=== PATIENT | male | born 1975 | race African-American/Black ===

== ENCOUNTER 2025-04-24 11:13 | Outpatient (AMB) | payer OTHER, SELFPAY ==
--- NOTE | 2025-04-24 11:15 | A.OFFPC_ITS ---
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 Accompanied by: Self / Same As Patient Allergies No Known Allergies Allergy (Verified 04/24/25 11:15) Medication List - Last Reconciled 04/24/25 by Oral Abbasi MD No Known Home Meds Tobacco use date assessed: 04/24/25 Dental Screening Dental Screen Date: 04/24/25 Did you have a dental visit in the last 12 months?: Yes Did you have a dental problem in the last 6 months where you did not have access to dental care?: Yes Was dental information given to patient?: Patient has dentist HPI HPI Comments History of Present Illness Details History of Present Illness The patient is a 49-year-old male presenting to establish care, follow up on prediabetes, and discuss prostate screening. Prediabetes: The patient reports he had lab work done in January which indicated he is borderline for diabetes. Since receiving these results, he has been attempting to modify his diet. Prostate cancer screening: The patient is 49 years old and was advised by his previous physician to have his prostate checked. He is of descent, which is a risk factor for prostate cancer, but denies any family history of the disease. He denies urinary symptoms such as increased frequency, nocturia, or incomplete emptying. Colon cancer screening: The patient is 49 years old and reports he has never had a colonoscopy. Surgical History: - No prior surgeries reported. 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 - Substance use: Drinks coffee, which he believes may cause his heart to race. - Sleep: Reports sleeping well. Family History: - Denies a family history of prostate ca ncer. Diagnostic Results: - Lab work (January): Indicated borderlin e diabetes. Past Medical History - Prediabetes diagnosed based on lab wor k from January. Health Maintenance - Prostate cancer screening: The patient is an male, which is a risk factor. - After discussing options, a PSA blood test was ordered. - Colon cancer screening: The patient is 49 and has never been screened. - After discussing options, a Cologuard test was ordered. ON LICENSE OF [facility] Medical History (Updated 04/24/25 @ 12:08 by Oral Abbasi MD) Irregular heart beat Family History (Updated 04/24/25 @ 11:23 by Get Tobin MA) Father No problems noted. Mother No problems noted. Social History Housing: Apartment Patient Tobacco Use Status: Never used Tobacco service: No Current occupational status: employed Cognitive needs: No Hearing needs: No Vision needs: No Questionnaire PHQ-9 Over the last 2 weeks, how often have you been bothered by any of the following problems? 1. Little interest or pleasure in doing things: not at all 2. Feeling down, depressed, or hopeless: not at all 3. Trouble falling or staying asleep, or sleeping too much: not at all 4. Feeling tired or having little energy: not at all 5. Poor appetite or overeating: not at all 6. Feeling bad about yourself - or that you are a failure or have let yourself or your family down: not at all 7. Trouble concentrating on things, such as reading the newspaper or watching television: not at all 8. Moving or speaking so slowly that other people could have noticed. Or the opposite - being so fidgety or restless that you have been moving around a lot more than usual: not at all 9. Thoughts that you would be better off or of hurting yourself in some way: not at all Total score: 0 Depression Screening Interpretation: Negative Depression Screening Done: Yes Source: Developed by Drs. Felix Marcos, Laila Holcomb, Shiva Echeverria and colleagues, with an educational sugey from [employer]. Thrive Questionnaire Date Thrive assessed: 04/24/25 I am a: Patient What is your living situation today?: I have a steady place to live Within the past 12 months, did the food you bought not last and you didn't have the money to get more?: Never true Within the past 12 months, did you worry whether your food would run out before you got money to buy more?: Never true Do you have trouble paying for medicines?: No Do you have trouble getting transportation to medical appointments?: No Do you have trouble paying your heating and electricity bill?: No Do you have trouble taking care of your child, family member or friend?: No Do you have trouble with day-to-day activities such as bathing, preparing meals, shopping, managing finances, etc.?: No Are you currently unemployed and looking for a job?: No Are you interested in more education?: No Please select the resources that you would like help with: None THRIVE Score: 0 AUDIT C Alcohol Use Questionnaire (AUDIT-C) 1. How often do you have a drink containing alcohol?: Never Total Score: 0 ANDREW-7 AMB Questionnaire ANDREW-7 Date ANDREW - 7 assessed: 04/24/25 Feeling nervous, anxious, or on edge: 0 = Not at all Not being able to stop or control worryin = Not at all Worrying too much about different things: 0 = Not at all Trouble relaxin = Not at all Being so restless that it is hard to sit still: 0 = Not at all Becoming easily annoyed or irritable: 0 = Not at all Feeling afraid as if something awful might happen: 0 = Not at all Total ANDREW-7 score (0-4 normal; 5-9 mild; 10-14 moderate; 15-21 severe): 0 Source: Developed by Drs. Felix Marcos, Laila Holcomb, Shiva Echeverria and colleagues, with an educational sugey from [employer]. Review of Systems Narrative Review of Systems - General: Reports good sleep. - Cardiovascular: Reports a sensation of a racing heart, which he associates with coffee consumption. - Gastrointestinal: Reports good bowel function. - Genitourinary: Reports good urinary function. Denies nocturia, frequency, or incomplete bladder emptying. 10-point ROS reviewed and negative except as noted in HPI Physical exam (Primary Care) Vital Signs: Last Vital Signs Temp 98.1 F 04/24/25 11:19 Pulse 83 04/24/25 11:19 Resp 16 04/24/25 11:19 BP 153/103 H 04/24/25 11:19 Pulse Ox 95 04/24/25 11:19 Oxygen Delivery Method Room Air 04/24/25 11:19 BMI result Body Mass Index 34.4 Tobacco/Smoking Status: Tobacco use Status Tobacco use date assessed 04/24/25 04/24/25 11:27 Patient Tobacco Use Status Never used Tobacco 04/24/25 11:27 PHQ-9: PHQ-9 Score PHQ-9: Total score 0 04/24/25 11:28 Depression Screening Interpretation: Negative Thrive Assessment: Date of Thrive Assessment Date Thrive assessed 04/24/25 04/24/25 11:27 Narrative Physical Exam General: Well-appearing, in no acute distress. Vital signs: Blood pressure is a little elevated. HEENT: Normocephalic, atraumatic. PERRLA, EOMI. Conjunctiva clear, sclera anicteric. Oropharynx clear, mucous membranes moist. TMs intact bilaterally. Neck: Supple, no lymphadenopathy, no thyromegaly, no JVD or carotid bruits. Cardiovascular: Irregular heart rate, normal S1/S2, no murmurs, rubs, or gallops. Peripheral pulses 2+ and symmetric. No edema. Respiratory: Lungs clear to auscultation bilaterally, no wheezes, rales, or rhonchi. Normal effort. Abdomen: Soft, non-tender, non-distended. Normoactive bowel sounds. No hepatosplenomegaly, no masses. MSK: Full range of motion, no joint swelling or deformity. Normal gait. Skin: Warm, dry, intact. No rashes, lesions, or pallor. Neuro: Alert and oriented x3. Cranial nerves II-XII intact. Strength 5/5 throughout. Sensation intact. Reflexes 2+ symmetric. Normal coordination and gait. Psych: Appropriate mood and affect. Normal judgment and insight. Coding Level of Care Code New Pt Level 4 (15509) Diagnoses Irregular heart beat I49.9 Prediabetes R73.03 Assessment & Plan Assessment & Plan (1) Irregular heart beat: Code(s): I49.9 - Cardiac arrhythmia, unspecified Category: Medical (2) Prediabetes: Code(s): R73.03 - Prediabetes Plan Consent The risks, benefits, and alternatives for prostate cancer screening were discussed with the patient. This included the limitations of a digital rectal exam and the potential for false positives with a PSA test, which could lead to a cascade of further testing and invasive procedures with potential consequences. The patient acknowledged the information and consented to proceed with a PSA blood test. Additionally, the options for colon cancer screening were reviewed, including an at-home stool test (Cologuard) valid for three years versus a colonoscopy, which involves a bowel preparation and procedural sedation and is valid for ten years if normal. The patient provided verbal consent to proceed with the Cologuard test. Patient was informed and verbally consented to the use of an ambient scribe for clinic note documentation during this visit. Plan 1. Prediabetes - Comprehensive lab work will be obtained today to re-evaluate the patient's glycemic status, as his last labs were from January. - Labs ordered include a complete blood count, comprehensive metabolic panel, hemoglobin A1c, and a lipid panel. - A follow-up visit is scheduled in two weeks to discuss all lab results and determine next steps to optimize his health. 2. Irregular Heartbeat - An electrocardiogram (EKG) will be performed today to further evaluate the irregular heart rate detected on physical exam. - The patient notes this could be related to coffee consumption, but an EKG is prudent to ensure cardiac function is normal. 3. Health Maintenance: Prostate Cancer Screening - After a discussion of risks and benefits, a Prostate-Specific Antigen (PSA) test will be included in today's blood work for screening. 4. Health Maintenance: Colon Cancer Screening - After discussing the alternatives of Cologuard versus colonoscopy, the patient opted for the Cologuard test. - A Cologuard kit will be mailed to the patient's home for him to complete and send back for analysis. Discussion Notes I had a detailed discussion with the patient regarding his health maintenance. His initial blood pressure reading was elevated, and I advised we will recheck it before he leaves. My physical exam revealed an irregular heart rate, and although he attributes this to coffee, I explained the importance of getting an EKG to ensure his heart is working correctly, which he understood. I reviewed the options for prostate cancer screening, outlining the risks of false positives with PSA testing and the benefits of early detection given his risk factors as an male. He elected to proceed with a PSA test. We also discussed colon cancer screening, comparing the Cologuard test with a traditional colonoscopy, and he chose to proceed with Cologuard. I ordered a comprehensive panel of blood work to get a baseline and follow up on his prediabetes. We will follow up in two weeks to discuss all results and optimize his health. Patient Instructions - Please proceed to the lab today to have your blood drawn for the ordered tests. - You will also have an EKG (electrocardiogram) done today to check your heart's rhythm. - A Cologuard kit for colon cancer screening will be mailed to your home. Please follow the instructions in the kit to collect a sample and mail it back. - We will have your blood pressure re-checked before you leave the office today. - Please schedule a follow-up appointment in about two weeks to go over all of your results. Medical Decision Making The patient is a 49-year-old male establishing care. A gan finding on exam was an irregular heart rate. Although this may be benign and related to his stated coffee intake, an EKG is warranted to rule out an underlying arrhythmia. The patient reported a prior finding of prediabetes, so comprehensive labs, including a hemoglobin A1c, were ordered to re-evaluate his glycemic status and establish a baseline for other health markers. For health maintenance, we discussed age- and risk-appropriate cancer screenings. As an man approaching 50, prostate cancer screening was discussed via shared decision- making, covering the risks of a PSA test (false positives, downstream procedures) and benefits; he opted to proceed with screening. For colorectal cancer screening, options of Cologuard versus colonoscopy were presented, and the patient chose the non-invasive Cologuard test. A follow-up is planned in two weeks to review all diagnostic findings and formulate a long-term health plan. Total time spent caring for the patient today was 30 minutes. This includes time spent before the visit reviewing the chart, time spent documenting, and time spent reviewing laboratory results, diagnostic imaging, medications, performing a medically necessary evaluation, counseling on diagnoses, care coordination, ordering appropriate tests, ordering appropriate medications, review of tests performed by other providers, reporting test results with the patient, communication with other healthcare providers. Orders: Orders Complete Blood Count Auto Diff Today Z13.9 - Encounter for screening, unspecified Comprehensive Met. Panel Today Z13.9 - Encounter for screening, unspecified Hepatitis B Surface Antibody Today Z13.9 - Encounter for screening, unspecified Hepatitis B Surface Antigen Today Z13.9 - Encounter for screening, unspecified Hepatitis C Antibody Today Z13.9 - Encounter for screening, unspecified Vitamin D 1,25 dihydroxy Today Z13.9 - Encounter for screening, unspecified TSH reflex Free T4 Today Z13.9 - Encounter for screening, unspecified UA CC w/rflx Micro + Cult Today Z13.9 - Encounter for screening, unspecified ECG 12 lead EKG Today I49.9 - Cardiac arrhythmia, unspecified Hemoglobin A1c Today Z13.9 - Encounter for screening, unspecified HIV Ab/Ag Today Z13.9 - Encounter for screening, unspecified Lipid Panel Today Z13.9 - Encounter for screening, unspecified Magnesium Today Z13.9 - Encounter for screening, unspecified Vitamin B12 and Folate Today Z13.9 - Encounter for screening, unspecified PSA, Ultra Sensitive Today Z13.9 - Encounter for screening, unspecified Referrals Cologuard Test Z12.11 - Encounter for screening for malignant neoplasm of colon, Z12.12 - Encounter for screening for malignant neoplasm of rectum
[2025-04-24 11:19] VITALS: BP 153/103; PULSE 83; RESP 16; TEMP 36.7; O2SAT 95; BMI 34.4
[2025-04-24 11:59] VITALS: BP 127/82
== END 2025-04-24 12:03 | disposition home or self-care (01) ==
LOC: HO.HMCFMS 11:13
PROVIDERS: Visit Provider Student in an Organized Health Care Education/Training Program
DX: I49.9 Cardiac arrhythmia, unspecified (principal); R73.03 Prediabetes

== ENCOUNTER 2025-04-24 11:13 | Outpatient (REF) | payer OTHER, SELFPAY ==
[2025-04-24 18:08] LABS: Appearance Urine Clear; Glucose Urine UA Negative (Negative); PH 6.0 (5.0-9.0); Specific Gravity - Urine 1.020 (1.005-1.025)
[2025-04-24 18:09] LABS: MANUAL DIFF FLAG NO
[2025-04-24 18:42] LABS: Hematocrit 48.2 % (42.0-52.0); Hemoglobin 15.4 g/dl (14.0-18.0); Imm Gran Abs Auto 0.01 X10*3/uL (0.00-0.03); Imm Gran Pct Auto 0.2 % (0.0-0.4); Lymphocytes Absolute Auto 1.9 X10*3/uL (1.2-4.9); Mean Corpuscular HGB Conc 32.0 g/dl (31.0-36.0); Mean Corpuscular Hemoglobin 28.9 pg (27.0-33.0); Mean Corpuscular Volume 90.4 fL (80.0-98.0); NRBC Abs Auto 0.000 X10*3/uL (0.0-0.012); NRBC Pct Auto 0.0 /100WBC (0.0-0.2); Platelet Count 236 X10*3/uL (160-400); Red Blood Count 5.33 X10*6/uL (4.60-5.80); White Blood Count 4.1 X10*3/uL (4.8-10.8)
[2025-04-24 18:52] LABS: Albumin Level 4.5 g/dL (3.5-5.0); Alkaline Phosphatase 62 U/L (39-117); Anion Gap 11 (12-20); Aspartate Amino Transferase 56 U/L (5-37); Blood Urea Nitrogen 14 mg/dL (9-16); Calcium 9.1 mg/dL (8.4-10.2); Carbon Dioxide 28 mmol/L (22-29); Chloride 103 mmol/L (96-108); Cholesterol 244 mg/dL (<200); Estimated Glomerular Filt Rate > 60; HDL Cholesterol 51 mg/dL (>40); Magnesium 2.1 mg/dL (1.6-2.6); Potassium 4.0 mmol/L (3.3-5.1); Sodium 138 mmol/L (135-145); Total Protein 7.9 g/dL (6.5-8.0); Triglycerides 199 mg/dL (<150)
[2025-04-24 19:01] LABS: Alanine Aminotransferase 48 U/L (0-40)
[2025-04-24 19:08] LABS: Folate 6.4 ng/mL (> or = 4.0); Vitamin B12 677 pg/mL (200-900)
[2025-04-25 06:41] LABS: HBS Num1 0.22 mIU/mL (0-7.99); HBsAGNum1 0.45 S/CO (0.00-0.99); HIV Num 1 0.07 S/CO (0.00-0.99); Hepatitis B Surface Antigen Negative (Negative); ~HepC Num1 0.08 S/CO (0.00-0.79); ~Hepatitis B Surface Antibody NONREACTIVE (Nonreactive); ~Hepatitis C Antibody Nonreactive (Nonreactive)
[2025-04-29 13:07] LABS: VITAMIN D (1,25 OH) D3 54 pg/mL; Vit D (1,25-Dihydroxy) Total 54 pg/mL (18-72); Vitamin D (1,25 OH) D2 <8 pg/mL
[2025-05-03 01:33] LABS: PSA, Ultra Sensitive 0.44 ng/mL
== END 2025-04-24 11:14 | disposition home or self-care (01) ==
LOC: HO.HKASLDS 11:13
PROVIDERS: PCP Student in an Organized Health Care Education/Training Program; Visit Provider Student in an Organized Health Care Education/Training Program
DX: R73.03 Prediabetes (principal); I49.9 Cardiac arrhythmia, unspecified; E78.5 Hyperlipidemia, unspecified; R74.8 Abnormal levels of other serum enzymes; Z12.5 Encounter for screening for malignant neoplasm of prostate
CPT/HCPCS: 36415; 80053; 80061; 81003; 82607; 82652; 82746; 83036; 83735; 84153; 84443; 85025; 86706; 86803; 87340; 87389; 96127

== ENCOUNTER 2025-05-09 14:51 | Outpatient (AMB) | payer OTHER, SELFPAY ==
--- NOTE | 2025-05-09 15:45 | A.OFFPC_ITS ---
Vital Signs 05/09/25 15:49 Height 6 ft 0.05 in Weight 254 lb 6 oz BMI 34.4 BP 161/83 H Blood Pressure Location Rt brachial Position Sitting Respiration 16 Pulse 67 Pulse Source Monitor Temp 97.9 F Temp Source Oral Pulse Oximetry (%) 98 Oxygen Delivery Method Room Air Intake Visit Reasons: 2 wk f/u- lab reviews Intake Note: lab reviews Forestry Technician Required: No Allergies No Known Allergies Allergy (Verified 05/09/25 15:48) Tobacco use date assessed: 04/24/25 Dental Screening Dental Screen Date: 04/24/25 HPI HPI Comments History of Present Illness Details History of Present Illness The patient is a 50 year old male presenting for review of laboratory results. Prediabetes: Recent lab results show a hemoglobin A1c of 5.8%, placing the patient in the prediabetic range. The patient reports efforts to modify his diet by eliminating sweets, pastas, and potatoes, and focusing on greens and proteins, though he admits to eating nikita cookies occasionally. Hyperlipidemia: Lab results show elevated triglycerides at 199 mg/dL, total cholesterol at 244 mg/dL, and LDL cholesterol at 154 mg/dL. There is an associated mild elevation in liver enzymes. The patient reports eating eggs every morning. Irregular heartbeat: The patient has a history of an irregular heartbeat which was previously identified. An electrocardiogram was ordered to evaluate this, but the patient has not yet completed the test. Social History: - Diet: The patient reports attempting t o eliminate sweets, breads, pasta, and potatoes. - He consumes nikita cookies occasionall y. - He reports eating greens, proteins, an d eggs every morning. Diagnostic Results: - Labs: Complete blood count, sodium, po tassium, renal function, random glucose, calcium, magnesium, vitamin D, folate, thyroid function, and prostate specific antigen were all within normal limits. - Hemoglobin A1c: 5.8%. - Liver enzymes: Mildly elevated. - Lipid panel: Triglycerides 199 mg/dL, total cholesterol 244 mg/dL, LDL cholesterol 154 mg/dL. - Urinalysis: Results are normal. - Serology: Negative for Hepatitis B, He patitis C, and HIV. Past Medical History - History of irregular heartbeat. Health Maintenance - Colon Cancer Screening: The patient berrios s received a Cologuard kit and plans to complete it. - Infectious Disease Screening: Hepatiti s B, C, and HIV tests were negative. - Prostate Cancer Screening: Prostate en zyme level is normal. - Dietary Counseling: A referral to a re gistered dietitian has been ordered for management of hyperlipidemia and prediabetes. [facility] Medical History (Updated 05/09/25 @ 17:01 by Oral Abbasi MD) Prediabetes Hyperlipidemia Elevated liver enzymes Irregular heart beat Family History Father No problems noted. Mother No problems noted. Social History (Updated 05/09/25 @ 15:49 by Jackson Espana CMA) Housing: Apartment Alcohol intake: never Patient Tobacco Use Status: Never used Tobacco service: No Current occupational status: employed Cognitive needs: No Hearing needs: No Vision needs: No Questionnaire PHQ-9 Over the last 2 weeks, how often have you been bothered by any of the following problems? 1. Little interest or pleasure in doing things: nearly every day 2. Feeling down, depressed, or hopeless: not at all 3. Trouble falling or staying asleep, or sleeping too much: not at all 4. Feeling tired or having little energy: not at all 5. Poor appetite or overeating: not at all 6. Feeling bad about yourself - or that you are a failure or have let yourself or your family down: not at all 7. Trouble concentrating on things, such as reading the newspaper or watching television: not at all 8. Moving or speaking so slowly that other people could have noticed. Or the opposite - being so fidgety or restless that you have been moving around a lot more than usual: not at all 9. Thoughts that you would be better off or of hurting yourself in some way: not at all Total score: 3 Source: Developed by Drs. Felix Marcos, Laila Holcomb, Shiva Echeverria and colleagues, with an educational sugey from [employer]. Thrive Questionnaire Date Thrive assessed: 05/02/25 I am a: Patient What is your living situation today?: I have a steady place to live Within the past 12 months, did the food you bought not last and you didn't have the money to get more?: Never true Within the past 12 months, did you worry whether your food would run out before you got money to buy more?: Never true Do you have trouble paying for medicines?: No Do you have trouble getting transportation to medical appointments?: No Do you have trouble paying your heating and electricity bill?: No Do you have trouble taking care of your child, family member or friend?: No Do you have trouble with day-to-day activities such as bathing, preparing meals, shopping, managing finances, etc.?: No Are you currently unemployed and looking for a job?: No Are you interested in more education?: No Please select the resources that you would like help with: None Currently or been in a relationship where the following occur: No concerns reported THRIVE Score: 0 AUDIT C Alcohol Use Questionnaire (AUDIT-C) 1. How often do you have a drink containing alcohol?: Never 2. How many drinks containing alcohol do you have on a typical day when you are drinking?: 1 or 2 3. How often do you have six or more drinks on one occasion?: Never Total Score: 0 ANDREW-7 AMB Questionnaire ANDREW-7 Date ANDREW - 7 assessed: 04/24/25 Feeling nervous, anxious, or on edge: 0 = Not at all Not being able to stop or control worryin = Not at all Worrying too much about different things: 0 = Not at all Trouble relaxin = Not at all Being so restless that it is hard to sit still: 0 = Not at all Becoming easily annoyed or irritable: 0 = Not at all Feeling afraid as if something awful might happen: 0 = Not at all Total ANDREW-7 score (0-4 normal; 5-9 mild; 10-14 moderate; 15-21 severe): 0 Source: Developed by Drs. Felix Marcos, Laila Holcomb, Shiva Echeverria and colleagues, with an educational sugey from [employer]. Review of Systems Narrative Review of Systems - Cardiovascular: Reports a history of irregular heartbeat. - Constitutional: No new complaints reported; patient is in for a review of labs. 10-point ROS reviewed and negative except as noted in HPI Physical exam (Primary Care) Vital Signs: Last Vital Signs Temp 97.9 F 05/09/25 15:49 Pulse 67 05/09/25 15:49 Resp 16 11/18/25 15:49 BP 161/83 H 05/09/25 15:49 Pulse Ox 98 05/09/25 15:49 Oxygen Delivery Method Room Air 05/09/25 15:49 BMI result Body Mass Index 34.4 Tobacco/Smoking Status: Tobacco use Status Tobacco use date assessed 04/24/25 05/09/25 15:51 Patient Tobacco Use Status Never used Tobacco 05/09/25 15:51 PHQ-9: PHQ-9 Score PHQ-9: Total score 3 05/09/25 15:51 Thrive Assessment: Date of Thrive Assessment Date Thrive assessed 05/02/25 05/09/25 15:51 Currently or been in a relationship where the following occur: No concerns reported Narrative Physical Exam General: Well-appearing, in no acute distress. Vital signs: Blood pressure 161/83, otherwise within normal limits. HEENT: Normocephalic, atraumatic. PERRLA, EOMI. Conjunctiva clear, sclera anicteric. Oropharynx clear, mucous membranes moist. TMs intact bilaterally. Neck: Supple, no lymphadenopathy, no thyromegaly, no JVD or carotid bruits. Cardiovascular: Irregular heartbeat noted. Normal S1/S2, no murmurs, rubs, or ga llops. Peripheral pulses 2+ and symmetric. No edema. Respiratory: Lungs clear to auscultation bilaterally, no wheezes, rales, or rhonchi. Normal effort. Abdomen: Soft, non-tender, non-distended. Normoactive bowel sounds. No hepatosplenomegaly, no masses. MSK: Full range of motion, no joint swelling or deformity. Normal gait. Skin: Warm, dry, intact. No rashes, lesions, or pallor. Neuro: Alert and oriented x3. Cranial nerves II-XII intact. Strength 5/5 throughout. Sensation intact. Reflexes 2+ symmetric. Normal coordination and gait. Psych: Appropriate mood and affect. Normal judgment and insight. Coding Level of Care Code Est Pt Level 3 (81681) Diagnoses Prediabetes R73.03 Irregular heart beat I49.9 Hyperlipidemia E78.5 Elevated liver enzymes R74.8 Elevated blood pressure reading R03.0 Assessment & Plan Assessment & Plan (1) Prediabetes: Code(s): R73.03 - Prediabetes Category: Medical (2) Irregular heart beat: Code(s): I49.9 - Cardiac arrhythmia, unspecified Category: Medical (3) Hyperlipidemia: Code(s): E78.5 - Hyperlipidemia, unspecified Category: Medical (4) Elevated liver enzymes: Code(s): R74.8 - Abnormal levels of other serum enzymes Category: Medical (5) Elevated blood pressure reading: Code(s): R03.0 - Elevated blood-pressure reading, without diagnosis of hypertension Plan Consent The patient was informed of the plan to order a liver ultrasound, an electrocardiogram, and a referral to a registered dietitian. The patient verbally agreed to the proposed plan of care. Patient was informed and verbally consented to the use of an ambient scribe for clinic note documentation during this visit. Plan 1. Hyperlipidemia And Elevated Liver Enzymes - The patient's elevated liver enzymes are likely secondary to dyslipidemia, with concern for fat deposition in the liver. - An ultrasound of the liver has been ordered to assess for steatosis and to establish a baseline. - A referral will be placed for a registered dietitian to provide education on dietary modifications for elevated lipids. 2. Prediabetes - The patient's hemoglobin A1c of 5.8% falls within the prediabetic range. - The patient is encouraged to continue dietary modifications. The referral to a dialysis registered nurse will also address management of prediabetes. 3. Irregular Heartbeat - An electrocardiogram (EKG) will be scheduled to evaluate the patient's prior complaint of an irregular heartbeat. - The patient will be provided with the contact number to schedule the appointment. 4. Elevated Blood Pressure Reading - A single blood pressure reading was elevated at 161/83 mmHg. - The patient's blood pressure will be rechecked before leaving the clinic to rule out a false positive. 5. Preventative Care: Colon Cancer Screening - The patient has the Cologuard kit and will complete the screening as recommended. Discussion Notes I reviewed the patient's recent lab results with him. I explained that his hemoglobin A1c of 5.8% places him in the prediabetic range, and while his dietary efforts are good, we want the value to be below 5.7%. I also discussed his elevated cholesterol (total 244, LDL 154) and triglycerides (199), explaining that this is the likely cause of his mildly elevated liver enzymes, as excess fat is stored in the liver. To further evaluate his liver, I informed him that I am ordering an ultrasound. To address his question about what to eat, I am referring him to a registered dietitian for formal counseling. We will also schedule the pending EKG to follow up on a previous finding of an irregular heartbeat. I noted his blood pressure was elevated today at 161/83 mmHg and advised that we will recheck it before he leaves to ensure it is not a false positive. Patient Instructions - An ultrasound of your liver has been ordered. - You will need to get an electrocardiogram (EKG) of your heart. You will be given a phone number to call and schedule this. - A registered dietitian will contact you to provide education on what foods to eat to help with your cholesterol and blood sugar. - Please complete the Cologuard test that you recently received. - We will recheck your blood pressure before you leave the office today. - Continue to limit your intake of sweets, breads, pasta, and potatoes. Medical Decision Making The patient is a 50-year-old male who presented for a review of recent lab work. The findings are significant for prediabetes (HbA1c 5.8%) and mixed hyperlipidemia (Triglycerides 199, Total Cholesterol 244, LDL 154), with an associated mild elevation in liver enzymes. The elevation in liver enzymes is most likely due to non-alcoholic fatty liver disease secondary to the patient's metabolic profile. My plan addresses these findings through diagnostic evaluation and lifestyle modification. A liver ultrasound is ordered to assess for steatosis and establish a baseline. Given the patient's uncertainty about dietary choices, a referral to a registered dietitian is essential for targeted education on managing both prediabetes and hyperlipidemia. Additionally, an EKG is being ordered to complete the workup for a prior report of an irregular heartbeat. The elevated blood pressure reading of 161/83 mmHg will be repeated in-office to rule out white coat hypertension before considering a formal diagnosis or treatment. Total Time Statement 20 min Total time spent caring for the patient today includes pre-visit chart review, documentation, review of laboratory and diagnostic imaging results, medication reconciliation, medically necessary evaluation, counseling on diagnoses, care coordination, ordering appropriate tests and medications, review of tests performed by other providers, reporting test results to the patient, and communication with other healthcare providers. Orders: Orders US abdomen limited Today R74.8 - Abnormal levels of other serum enzymes Referrals Nurse Navigator Referral E78.5 - Hyperlipidemia, unspecified
[2025-05-09 15:49] VITALS: BP 161/83; PULSE 67; RESP 16; TEMP 36.6; O2SAT 98; BMI 34.4
== END 2025-05-09 16:25 | disposition home or self-care (01) ==
LOC: HO.HMCFMS 14:52
PROVIDERS: PCP Student in an Organized Health Care Education/Training Program; Visit Provider Student in an Organized Health Care Education/Training Program
DX: R73.03 Prediabetes (principal); I49.9 Cardiac arrhythmia, unspecified; E78.5 Hyperlipidemia, unspecified; R74.8 Abnormal levels of other serum enzymes; R03.0 Elevated blood-pressure reading, without diagnosis of hypertension

== ENCOUNTER → 2025-05-15 09:02 | Outpatient (REF) | payer OTHER, SELFPAY ==
--- NOTE | 2025-05-15 10:02 | ECG_ITS ---
Test Reason : CARDIAC ARRHYTHMIA Blood Pressure : */* mmHG Vent. Rate : 63 BPM Atrial Rate : 63 BPM P-R Int : 140 ms QRS Dur : 104 ms QT Int : 416 ms P-R-T Axes : 38 -24 14 degrees QTcB Int : 425 ms Normal sinus rhythm Normal ECG No previous ECGs available Referred By: Oral Abbasi Electronically Signed By: Smith Schultz
== END ==
LOC: HO.CARD 09:02
PROVIDERS: PCP Student in an Organized Health Care Education/Training Program; Visit Provider Internal Medicine Cardiovascular Disease
DX: I49.9 Cardiac arrhythmia, unspecified (principal)
CPT/HCPCS: 93005; 99499

== ENCOUNTER → 2025-05-15 10:02 | Outpatient (BNV) | payer OTHER, SELFPAY | PROVIDERS: PCP Student in an Organized Health Care Education/Training Program; Visit Provider Internal Medicine Cardiovascular Disease | DX: I49.9 Cardiac arrhythmia, unspecified (principal) | CPT/HCPCS: 93010 ==